=== PATIENT | male | born 1965 | race Caucasian/White ===

== ENCOUNTER 2018-11-04 10:22 | Emergency (ER) | payer MEDICAID ==
[2018-11-04] MEDS: HYDROCODONE/APAP (5/325) TAB PO (11:24)
[2018-11-04] MEDS: ONDANSETRON (ODT) 4 MG TAB ODT (11:24)
== END 2018-11-04 11:44 | disposition home or self-care (01) ==
LOC: FTE 10:22
DX: M62.838 Other muscle spasm (principal); I10 Essential (primary) hypertension
CPT/HCPCS: 99283; Z7502